=== PATIENT | male | born 1995 | race Caucasian/White ===

== ENCOUNTER 2018-07-11 20:02 | Emergency (ER) | payer SELFPAY ==
[~2018-07-11] VITALS: Ht 185.4 cm; Wt 81.6 kg
[2018-07-11 20:10] VITALS: BP 112/70
--- NOTE | 2018-07-11 21:26 | PHYS DOC ---
Past Medical History Past Medical History: No Pertinent History Past Surgical History: Other Additional Past Surgical Histo: acl left knee Alcohol Use: Rarely Drug Use: None Adult General Chief Complaint Chief Complaint: LACERATION/AVULSION HPI HPI 23-year-old male presents to ER with complaints of accidental right palm laceration. Patient reports he was moving a window panel and the glass fell out causing the laceration. Pt denies large amt of blood loss. He denies any numbness/tingling in rt hand. He reports he has had tetanus update in past 5 yrs. He reports he is rt hand dominant. Review of Systems Review of Systems Constitutional: Denies fever or chills. Denies fatigue Cardiovascular: Denies CP/palpitation GI: Denies nausea, vomiting Musculoskeletal: Rt palm pain at laceration site Integument: Reports laceration rt hand palm surface at base of rt thumb Neurologic: Denies focal weakness or sensory changes [] All other systems were reviewed and found to be within normal limits, except as documented in this note. Current Medications Current Medications Current Medications Medications (Trade) Dose Ordered Sig/Kaz Start Time Stop Time Status Last Admin Dose Admin Lidocaine HCl (Lidocaine 1% 20ml Vial) 20 ml 1X ONCE 07/11/18 21:30 07/11/18 21:31 DC 07/11/18 21:28 20 ML Allergies Allergies Allergies Coded Allergies Type Severity Reaction Last Updated Verified No Known Drug Allergies 12/07/13 No Physical Exam Physical Exam Constitutional: Well developed, well nourished, no acute distress, non-toxic appearance. [] HENT: Normocephalic, atraumatic, bilateral external ears normal, oropharynx moist, no oral exudates, nose normal. [] Eyes: PERRLA, EOMI, conjunctiva normal, no discharge. [] Neck: Normal range of motion, no tenderness, supple, no stridor. [] Cardiovascular:Heart rate regular rhythm, no murmur [] Lungs & Thorax: Bilateral breath sounds clear to auscultation [] Abdomen: Bowel sounds normal, soft, no tenderness, no masses, no pulsatile masses. [] Skin: Warm, dry, no erythema, no rash. [] Back: No tenderness, no CVA tenderness. [] Extremities: No tenderness, no cyanosis, no clubbing, ROM intact, no edema. [] Neurologic: Alert and oriented X 3, normal motor function, normal sensory function, no focal deficits noted. [] Psychologic: Affect normal, judgement normal, mood normal. [] Current Patient Data Vital Signs Vital Signs Date Time Temp Pulse Resp B/P (MAP) Pulse Ox O2 Delivery O2 Flow Rate FiO2 07/11/18 20:10 98.9 92 16 112/70 (84) 98 Room Air 98.9 EKG EKG [] Radiology/Procedures Radiology/Procedures Laceration Repair by me: following discussion on procedure plans with verbal permission by pt Anesthesia: 1% lidocaine locally- 3mL with 25g needle Location: palm surface of rt hand- no thumb involvement Tendon/Joint/Nerves: No injury- flexor tendon intact against resistance in rt thumb/fingers Foreign body: None detected after copious irrigation and exploration- pt refused xray Technique: Simple Interrupted Sutures with 5.0 nylon sutures #7 Complexity: No subcutaneous sutures/mucosal repair/edge excision Post Closure Length: 5 cm Patient's bleeding was easily controlled in the department and there is no indication of anemia. No evidence of compartment syndrome, neurologic injury, vascular injury, open joint, tendon laceration, or foreign body. Patient is appropriate for outpatient follow up. 48 hour wound check if needed with s&s of infection. Scar minimization instructions given. Course & Med Decision Making Course & Med Decision Making Initially pt had reported laceration was from broken glass- during initial exam with this provider he reported pane of glass was solid piece not broken. Xray had been ordered to further r/o FB- pt refused xray w/verbalization of understanding xray could further r/o piece of glass. Patient tolerated laceration repair well. Patient had minimal blood loss during procedure. Home wound care was discussed. Patient will follow up with primary care physician or local clinic for suture removal in 7 days. At time of discharge patient remained narrow and vascular intact in right upper extremity. Full range of motion in all fingers right hand with brisk capillary refill. Discharge instructions were discussed and education provided on signs and symptoms to return to the ER for. We will provide physician and clinic options with discharge paperwork. Pt to use OTC tylenol and/or ibuprofen as needed for pain as directed on container. [] Dragon Disclaimer Dragon Disclaimer This electronic medical record was generated, in whole or in part, using a voice recognition dictation system. Departure Departure Impression: Primary Impression: Laceration Disposition: HOME, SELF-CARE Condition: STABLE Referrals: NO PCP (PCP) Patient Instructions: Laceration Care, Adult Additional Instructions: Tylenol and/or Ibuprofen as needed for pain as directed on container. Follow-up with primary doctor in 7 days for suture removal. CHUCHO JAQUEZ APRN Jul 11, 2018 21:26
[2018-07-11] MEDS ORDERED: LIDOCAINE 1% Multi-Dose 20 ML VIAL. INJ ONE (21:30)
== END 2018-07-11 22:24 | disposition home or self-care (01) ==
LOC: ER 20:02
DX: S61.411A Laceration without foreign body of right hand, initial encounter (principal); W25.XXXA Contact with sharp glass, initial encounter; Y93.89 Activity, other specified; Y92.89 Other specified places as the place of occurrence of the external cause; Y99.8 Other external cause status
CPT/HCPCS: 12002; 99283

== ENCOUNTER 2019-12-21 06:58 | Emergency (ER) | payer SELFPAY ==
[~2019-12-21] VITALS: Ht 185.4 cm; Wt 75.0 kg
[2019-12-21 07:20] VITALS: BP 154/74
--- NOTE | 2019-12-21 07:45 | PHYS DOC ---
Past Medical History Past Medical History: No Pertinent History Past Surgical History: Other Additional Past Surgical Histo: acl left knee Smoking: Cigarettes Additional Information: Pt. reports smoking 1/2ppd Alcohol Use: None Drug Use: None Adult General Chief Complaint Chief Complaint: DENTAL PROBLEM HPI HPI Patient is a 24-year-old male who presents to the emergency department for evalu ation of left upper dental pain which has been present for the past 5 days. He denies any fevers or chills. He has not had any headache, nausea, or vomiting, difficulty breathing, or voice changes. He is smoker. Review of Systems Review of Systems Constitutional: Denies fever or chills [] Eyes: Denies change in visual acuity, redness, or eye pain [] HENT: Denies nasal congestion or sore throat [] Respiratory: Denies cough or shortness of breath [] Integument: Denies rash or skin lesions [] Neurologic: Denies headache, focal weakness or sensory changes [] Allergies Allergies Allergies Coded Allergies Type Severity Reaction Last Updated Verified No Known Drug Allergies 12/07/13 No Physical Exam Physical Exam PHYSICAL EXAM: CONSTITUTIONAL: Well developed, well nourished HEAD: normocephalic, atraumatic EENT: PERRL, EOMI. Conjunctivae normal color, sclerae non-icteric; moist mucous membranes. There is mild scattered dental decay, the anterior left upper molar is absent, there is some decay noted in the left upper posterior molar, with the patient has pain, there is no exam evidence of abscess. The soft tissue structures of the face and neck are nontender. NECK: Supple, non-tender; no meningismus. LUNGS: Lungs CTA, breathing even and unlabored. Normal air movement. HEART: Regular rate and rhythm, no murmur SKIN: No rash; no diaphoresis NEURO: Alert; normal speech and cognition; CN's grossly intact; strength grossly intact without focal deficit. BACK: No CVA TTP. Current Patient Data Vital Signs Vital Signs Date Time Temp Pulse Resp B/P (MAP) Pulse Ox O2 Delivery O2 Flow Rate FiO2 12/21/19 07:20 97.9 92 17 154/74 (100) 98 Room Air 97.9 EKG EKG [] Radiology/Procedures Radiology/Procedures [] Course & Med Decision Making Course & Med Decision Making Patient underwent a medical screening exam, and per hospital MSE policy, declined to complete course of treatment in this facility. The patient was recommended to see a dentist, for further treatment. Dragon Disclaimer Dragon Disclaimer This electronic medical record was generated, in whole or in part, using a voice recognition dictation system. Departure Departure Impression: Primary Impression: Pain, dental Disposition: 07 AGAINST MEDICAL ADVICE Condition: STABLE Referrals: NO PCP (PCP) KARISSA MICHELLE MD Dec 21, 2019 07:45
== END 2019-12-21 07:50 | disposition left against medical advice (07) ==
LOC: ER 06:58
DX: K02.9 Dental caries, unspecified (principal); K08.89 Other specified disorders of teeth and supporting structures; F17.210 Nicotine dependence, cigarettes, uncomplicated; Z98.890 Other specified postprocedural states
CPT/HCPCS: 99281